=== PATIENT | female | born 1945 | race Caucasian/White ===

== ENCOUNTER → 2018-06-23 | Outpatient (CLI) | payer MEDICARE ==
[~2018-06-23] MED LIST: AMLODIPINE PO; DILT240T PO; DILT60TA27 PO; DOXY100T PO; ELIQUIS PO; ERGO500017 PO; FERR325T16 PO; FLUT1BLS INH; GLIP5TAB10 PO; HYDR-3341 PO; INSU100I18 SQ-INSULIN; INSU100I28 SQ-INSULIN; IPRA3AMP30 NPPB; ISOS60TA36 PO; LISI-170 PO; LISINOPRIL PO; LORA0.5T PO; METFORMIN PO; NICO-486 TD; ONDA4TAB13 SL; OXYC1TAB7 PO; PHOS250T3 PO; POLY17PO5 PO; PRED5TAB PO; PROP20TA PO; PROPRANOLOL PO; SIMVASTATIN PO
== END | disposition home or self-care (01) ==
LOC: CFH 12:28
PROVIDERS: ATTEND Family Medicine
DX: Z12.31 Encounter for screening mammogram for malignant neoplasm of breast (principal); Z80.3 Family history of malignant neoplasm of breast
CPT/HCPCS: 77063; 77067

== ENCOUNTER 2019-01-31 09:38 | Emergency (ER) | payer MEDICARE ==
[~2019-01-31] VITALS: Ht 157.5 cm; Wt 63.5 kg
--- NOTE | 2019-01-31 10:14 | NUR ---
INSPECTOR ASSEMBLIES AND INSTALLATIONS: PT TO ROOM FROM [facility], AMBULATORY STEADY GAIT WITH WHEELED WALKER
--- NOTE | 2019-01-31 10:18 | NUR ---
VICTORIANO RN: PT PRESENTED TO ED DT LEFT EAR BLEEDING AND EPITAXIS SINCE YESTERDAY. HX OF AFIB. CURRENTLY PRESCRIBED COUMADIN FOR CHRONIC AFIB. PT STATES HAS NOT TAKEN MEDICATION IN OVER "4 DAYS." WAS ADVISED TO COME TO ED BY DR. SPARKS.
[2019-01-31] MEDS ORDERED: FURO-93 PO (10:23)
[2019-01-31] MEDS ORDERED: GENT5DRO LEFTEYE (10:30)
[2019-01-31] MEDS ORDERED: TRAZ50TA66 PO (10:30)
[2019-01-31] MEDS ORDERED: WARF-36 PO (10:30)
[2019-01-31] MEDS ORDERED: PROP10TA16 PO (10:30)
--- NOTE | 2019-01-31 10:37 | NUR ---
pt to ed for left ear bleeding and right sided epistaxis starting yesterday. pt states started coumadin for afib 1 month ago. pt states stopped taking coumadin 2 days ago. pt was able to speak wt Dr. Armijo (cards) who advised visit ed. pt denies blood in urine or stool. hx ckd. appears pale. pt connected to montitors. pt remains in afib. 2l nc [address] for ra sat of 89%. pt recovered to 97% after o2 application. all other vss. awaiting edmd assessment and orders.
--- NOTE | 2019-01-31 10:49 | NUR ---
PT RESTING IN ROOM WITH FAMILY AT BS. VSS. NO NEEDS EXPRESSED. CALL LIGHT WITHIN REACH. AWAITING EDMD ASSESSMENT.
--- NOTE | 2019-01-31 11:50 | NUR ---
PT RESTING IN ROOM WITH FAMILY AT BS. VSS. LAB AT BS TO DRAW. NO NEEDS EXPRESSED. CALL LIGHT WITHIN REACH. AWAITING LAB RESULTS.
[2019-01-31 12:07] LABS: ALBUMIN 2.8 g/dL (3.4-5.0); ANION GAP 10 mmol/L (5-15); CALCIUM 8.5 mg/dL (8.5-10.1); CHLORIDE 113 mmol/L (98-107); CREATININE 5.75 mg/dL (0.55-1.02)
--- NOTE | 2019-01-31 12:23 | NUR ---
this rn spoke to lab regarding the following hem and coag results. per lab, will redraw for verification. will notify edmd. pto time: 73.5 INR: 7.57 hct: 22.8 hb.2
[2019-01-31] MEDS ORDERED: SODIUM CHLORIDE FLUSH 10ML SYR IVF ONE (12:30)
--- NOTE | 2019-01-31 12:50 | NUR ---
PT RESTING IN ROOM WITH FAMILY AT BS. VSS. NO NEEDS EXPRESSED. CALL LIGHT WITHIN REACH. IV ESTABLISHED AND LABS DRAWN. AWAITING RESULTS.
[2019-01-31 13:00] LABS: BASOPHILS # (AUTO) 0.05 x10^3/uL (0-0.1); BASOPHILS % (AUTO) 1 % (0-1); EOSINOPHILS # (AUTO) 0.61 x10^3/uL (0-0.4); EOSINOPHILS % (AUTO) 8 % (1-7); LYMPHOCYTES # (AUTO) 1.24 x10^3/uL (1-3.4); LYMPHOCYTES % (AUTO) 16 % (22-44); MD NO; MEAN CORPUSCULAR HEMOGLOBIN 29.4 pg (27.0-34.8); MEAN CORPUSCULAR VOLUME 91.9 fL (80-100); MEAN PLATELET VOLUME 6.1 fL (7.4-10.4); MONOCYTES # (AUTO) 0.73 x10^3/uL (0.2-0.8); MONOCYTES % (AUTO) 9 % (2-9); NEUTROPHILS # (AUTO) 5.38 x10^3/uL (1.8-6.8); NEUTROPHILS % (AUTO) 67 % (42-75); PLATELET COUNT 421 x10^3/uL (130-400); RED BLOOD COUNT 2.58 x10^6/uL (3.82-5.3); RED CELL DISTRIBUTION WIDTH 18.6 % (9.6-15.2)
[2019-01-31 13:33] LABS: INTERNATIONAL NORMALIZED RATIO 7.36 (0.93-1.1); PROTHROMBIN TIME 71.6 Seconds (9.6-11.5)
--- NOTE | 2019-01-31 13:45 | NUR ---
edmd to bs to update on poc.
[2019-01-31 14:20] VITALS: BP 144/76
--- NOTE | 2019-01-31 14:21 | NUR ---
PT RESTING IN ROOM WITH FAMILY AT BS. VSS. NO NEEDS EXPRESSED. CALL LIGHT WITHIN REACH. AWAITING DISPO.
--- NOTE | 2019-01-31 14:30 | NUR ---
FLOAT RN: PT DISCHARGED HOME IN A STABLE CONDITION. PIV WAS REMOVED WITH TIP INTACT. DC INSTRUCTIONS WERE DISCUSSED WITH PT. PT VERBALIZED UNDERSTANDING. PT AMBULATED WITH RN AND TO DC DESK. STEADY GAIT WITH HOME FWW.
== END 2019-01-31 14:32 | disposition home or self-care (01) ==
LOC: ED 12:02
DX: I48.2 Chronic atrial fibrillation (principal); I13.0 Hypertensive heart and chronic kidney disease with heart failure and stage 1 through stage 4 chronic kidney disease, or unspecified chronic kidney disease; E11.22 Type 2 diabetes mellitus with diabetic chronic kidney disease; N18.3 Chronic kidney disease, stage 3 (moderate); I50.9 Heart failure, unspecified; D63.1 Anemia in chronic kidney disease; F17.200 Nicotine dependence, unspecified, uncomplicated; H92.22 Otorrhagia, left ear; I48.91 Unspecified atrial fibrillation
CPT/HCPCS: 36415; 71045; 80048; 82040; 85025; 85610; 86850; 86900; 99284

== ENCOUNTER 2019-04-11 12:23 | Outpatient (CLI) | payer MEDICARE | END 2019-04-11 23:59 | disposition home or self-care (01) | LOC: CVU 12:23 | PROVIDERS: ATTEND Registered Nurse | DX: I08.8 Other rheumatic multiple valve diseases (principal); I73.9 Peripheral vascular disease, unspecified; I10 Essential (primary) hypertension; E78.5 Hyperlipidemia, unspecified; I48.91 Unspecified atrial fibrillation; F17.210 Nicotine dependence, cigarettes, uncomplicated; Z86.73 Personal history of transient ischemic attack (TIA), and cerebral infarction without residual deficits | CPT/HCPCS: 93306; 93922 ==

== ENCOUNTER → 2020-03-08 | Outpatient (CLI) | payer MEDICARE ==
[~2020-03-08] MED LIST changes: +AMLO10TA8 PO; +APIX2.5T PO; +FURO-93 PO; +GENT5DRO LEFTEYE; +PROP10TA16 PO; +SIMV10TA18 PO; +TRAZ50TA66 PO; +WARF-36 PO
== END | disposition home or self-care (01) ==
LOC: CFH 08:07
PROVIDERS: ATTEND Family Medicine
DX: Z12.31 Encounter for screening mammogram for malignant neoplasm of breast (principal); M85.9 Disorder of bone density and structure, unspecified; Z78.0 Asymptomatic menopausal state
CPT/HCPCS: 77063; 77067; 77080

== ENCOUNTER → 2020-03-30 | Outpatient (CLI) | payer MEDICARE | END | disposition home or self-care (01) | LOC: CFH 10:06 | PROVIDERS: ATTEND Family Medicine | DX: R92.8 Other abnormal and inconclusive findings on diagnostic imaging of breast (principal) | CPT/HCPCS: 76642; 77065 ==